=== PATIENT | female | born 1965 | race Caucasian/White ===

== ENCOUNTER 2016-12-06 05:52 | Day surgery (SDC) | payer OTHER ==
[2016-12-05] MEDS: CeFAZolin Inj 2 GM in IV Premix 1 EACH IV SCH (06:00)
[2016-12-06] VITALS (14 sets, daily range): BP systolic 95–121; BP diastolic 37–77; PULSE 61–81; RESP 11–18; O2SAT 96–100
[~2016-12-06] VITALS: Ht 172.7 cm; Wt 82.8 kg
[2016-12-06] MEDS: Lactated Ringer's 1,000 ML IV SCH ×6 (05:00→17:03)
[~2016-12-06 05:52] MED LIST: Dextrose 10% 250 ML IV SCH; ESTR42.52 VG; Phenazopyridine 97.5 mg Tablet PO SCH
[2016-12-06] MEDS ORDERED: Ondansetron 2 mg/mL 2 mL Inj ONE (05:53)
[2016-12-06] MEDS ORDERED: Propofol 10,000 mCg/mL 20 mL Inj ONE (05:53)
[2016-12-06] MEDS ORDERED: fentaNYL-PF 50 mCg/mL 2 mL Inj ONE (05:53)
[2016-12-06] MEDS ORDERED: Rocuronium 10 mg/mL 5 mL Inj ONE (05:53)
[2016-12-06] MEDS ORDERED: Dexamethasone 4 mg/mL Inj ONE (05:53)
[2016-12-06] MEDS ORDERED: HYDROmorphone 1 mg/mL Inj ONE (05:53)
[2016-12-06] MEDS ORDERED: CeFAZolin 2 Gm/50 mL D5W Duplex Bag IV ONE (06:19)
[2016-12-06] MEDS ORDERED: Phenazopyridine 97.5 mg Tablet ONE (06:20)
--- NOTE | 2016-12-06 07:22 | PCM.HPANE ---
Patient Data Date of Service: Dec 06, 2016 Surgeon Admitting Provider: Attending Provider:Jamey Terry MD Primary Care Physician:Ilsa Other Provider:Hue Mike Anesthesia Reason for Visit Cystocele,Rectocele,Uterovaginal Prolapse Ht/WT & BMI Height (Feet): 5 Height (Inches): 8.00 Weight (Kilograms): 75.3 Body Mass Index 25.00 Allergies Coded Allergies: Sulfa (Sulfonamide Antibiotics) (Verified Allergy, Mild, sun reaction, 05/06) Past Anesthesia History Anesthesia History: Denies:: Abnormal Airway, Anesthesia Reactions, Difficult Intubation, Fam Anesthesia Reaction, Fam Malignant Hypertherm, Malignant Hyperthermia Diabetes History Hx Diabetes?: No MRSA MRSA: No Medications Hypertension Medication: No Home Meds Incl Beta Eliot: No Reported Medications Estradiol (Estrace)42.5 Gm Cream.appl1 G VG Q3D #1 TUBE Ref 0 11/29/16 History History of ENT Problems?: Yes HEENT History: Denies:: Abnormal Airway Cataracts Difficult Intubation Dysphagia Glaucoma Hearing Problem Sinus Problem TMJ (wears nightguard) Denture Type: None Teeth Condition: Within Normal Limits Hx of Heart Problems?: No Cardiovascular History: Denies:: AICD Abdominal Aortic Aneurism Atrial Fibrillation Cardiac Surgery Chest Pain Edema Heart Murmur Hypertension Irregular Heartbeat Pacemaker Peripheral Vascular Rheumatic Fever Hx of Respiratory Problem?: No Respiratory History: Denies:: Asthma COPD Emphysema Oxygen Administration Pneumonia Tuberculosis Use of C-PAP Machine Use of Inhalers / NEBS Hx Neurologic Problems?: No Neurological History: Denies:: Alzheimer's Disease Dementia Dizziness Headaches Multiple Sclerosis Parkinson's Disease Seizures TIA Hx of GI Problems?: No Hx of Problems?: Yes Genitourinary History: Denies:: Kidney Stones Female Hx: Denies:: Currently Problems with Breasts? Skin History: Denies:: History Skin Disorders? Pressure Ulcers Hx Musculoskeletal Problems?: Yes Musculoskeletal History: Positive for:: Back Injury (L4-5 disc rupture - exercises with PT) Osteoarthritis (neck) Denies:: Fibromyalgia Joint Replacement Musculoskeletal Trauma Myasthenia Gravis Rheumatoid Arthritis Systemic Lupus Hx of Psycho/Social Problems?: No Psycho Social History: Denies:: Anxiety Hx Depression (past hx of, managed now with counseling ) Hx Surgeries?: Yes (ORIF leg-right tibia, ) Hx Any Other Health Problems?: Yes Other History: Positive for:: Hospitalization (ortho trauma) Denies:: Cancer Thyroid Disease History Blood Transfusions: Positive for:: Accept Blood Products? Denies:: Blood Transfusions Hx Diabetes: No Hx Alcohol Use: YesAlcoholic Drinks Per Day: 1-3 drinks weekHx Substance Use: No (remote hx of marijuana- occ topical cbd)Have You Smoked inLast 12 mo: No (years ago) Stop/Bang S-Snoring: Do You Snore Loudly: No T-Tired: feel tired, fatigued: No O-Obsered: Observed not breath: No P-Blood Pressure: treated: No B- Body Mass Index > 35 kg/m2: No A- Age over 50: Yes N- Neck Large Circumference: No G- Gender Male: No SARAH Total Score: 1 SARAH Risk Assessment: Low Risk, <3 Yes Risk Assessment Category Category 1A: Patient has history of documented sleep apnea, and HAS NOT received any narcotic, sedative or anesthesia administration during this stay. Category 1B: Patient has history of documented sleep apnea, and HAS received any narcotic , sedative or anesthesia administration during this stay Category 2: Patient has SUSPECTED Obstructive Sleep Apnea, and HAS received any narcotic , sedative or anesthesia administration during this stay. Category 3: Patient has SUSPECTED Obstructive Sleep Apnea and HAS NOT received narcotic, sedative or anesthesia administration during this stay. Category 4: Outpatient in Procedural Areas with known sleep apnea or who screen positive for High Risk via the STOP/BANG questionnaire. Exam Exam Vital Signs Vital Signs Date Time Temp Pulse Resp B/P Pulse Ox O2 Delivery O2 Flow Rate FiO2 12/06/16 06:34 36.5 61 16 117/63 100 Room Air General Appearance: Alert, Oriented X3, Cooperative, No Acute Distress HEENT/AIRWAY: MP 2 Lungs: Clear to Auscultation, Normal Air Movement Heart: Exam Unremarkable, Regular Rate/Rhythm, No Murmurs/Rubs/Gallops Meds/Labs/Diagnostics Admission Meds Current Medications Lactated Ringer's (Lr) 1,000 ml @ 120 mls/hr Q8H20M IV Last administered on 06:34; Start 12/06/16 at 05:00; Stop 12/06/16 at 13:19 Phenazopyridine HCl (Azo Standard) 2 tab STK-MED ONCE .ROUTE Last administered on 7/19/17at 07:01; Start 12/06/16 at 06:20; Stop 12/06/16 at 06:21; Status DC Plan Impression Patient chart reviewed, patient interviewed and anesthestic plan with risks, benefits, and alternatives discussed, and informed consent obtained. NPO per Anesth. Guidelines: Yes ASA Physical Status: ASA2 Mod Systemic Disease Anesthetic Plan: GA Bene/Risks/Altern/Consents: Yes HP Complete Prior to Induction: Yes Other Pt declined SAB Caleb Dinero MD Dec 06, 2016 07:22
[2016-12-06] MEDS: CeFAZolin Inj 2 GM in IV Premix 1 EACH IV SCH (08:06)
[2016-12-06] MEDS ORDERED: Lactated Ringer's 1,000 ML IV SCH (08:18)
[2016-12-06] MEDS ORDERED: Lactated Ringer's 500 ML IV PRN (08:18)
[2016-12-06] MEDS ORDERED: Ondansetron 2 mg/mL 2 mL Inj IVPUSH PRN ×2 (08:20→11:55)
[2016-12-06] MEDS ORDERED: Atropine 0.4 mg/mL Inj IVPUSH PRN (08:20)
[2016-12-06] MEDS ORDERED: MetoCLOpramide 5 mg/mL 2 mL Inj IVPUSH PRN ×2 (08:20→11:55)
[2016-12-06] MEDS ORDERED: hydrALAZINE 20 mg/mL Inj IVPUSH PRN (08:20)
[2016-12-06] MEDS ORDERED: Phenylephrine 10,000 mCg/mL Inj IVPUSH PRN (08:20)
[2016-12-06] MEDS ORDERED: HYDROmorphone 1 mg/mL Inj IVPUSH PRN (08:20)
[2016-12-06] MEDS ORDERED: EPHEDrine Sulfate 50 mg/mL Inj IVPUSH PRN (08:20)
[2016-12-06] MEDS ORDERED: Labetalol 5 mg/mL 4 mL Inj IV PRN (08:20)
[2016-12-06] MEDS ORDERED: Lidocaine 1%-Epi 1:100,000 20 mL Inj INJ ONE (08:37)
[2016-12-06] MEDS ORDERED: Sodium Chloride Bacteriostatic 30 mL Inj INJ ONE ×2 (08:37→09:07)
[2016-12-06] MEDS ORDERED: Gentamicin 40 mg/mL 2 mL Inj IRRIGATION ONE ×2 (08:38→09:59)
[2016-12-06] MEDS ORDERED: Lidocaine 1%-Epi 1:100,000 20 mL Inj INFILTRATE ONE (09:07)
[2016-12-06] MEDS ORDERED: Estrogens Conjugated 30 Gm Vaginal Cream VAGINAL ONE (10:39)
--- NOTE | 2016-12-06 11:51 | PCM.ANEP1 ---
Post Anesthesia PACU Phase 1 Assessment Date of Service: Dec 06, 2016 Vital Signs 37.3 105/37 65 7 97% FM Anesthetic Administered: GA Level of Alertness: Sleeping, hard to arouse ACEVES's with Equal Strength: Yes Pain: No Nausea or Vomiting: No CV Function & Hydration Stable: Yes Airway Device: Oxygen Delivery: Simple Mask Lungs: Clear to Auscultation, Normal Air Movement PACU Phase 2 Assessment Complications: No Follow up Care: No Patient Instructions Provided: Yes Caleb Vega MD Dec 06, 2016 11:51
[2016-12-06] MEDS ORDERED: diphenhydrAMINE 25 mg Capsule PO PRN (11:55)
[2016-12-06] MEDS ORDERED: Alum-Mag Hydrox-Simeth 30 mL Suspension PO PRN (11:55)
[2016-12-06] MEDS: fentaNYL-PF 50 mCg/mL 2 mL Inj IVPUSH PRN ×3 (12:57→13:24)
--- NOTE | 2016-12-06 14:15 | NUR ---
PostOp Pt comes from PACU A&OX4 but sleepy. c/o pain 6/10 mostly low ABD. Back pain 5/10 baseline for her. Del Castillo orange output and in place. IV in use. Family a bedside. Care continues
[2016-12-06] MEDS: Acetaminophen IV 1,000 MG in IV Premix 1 EACH IV PRN ×2 (17:04→23:01)
--- NOTE | 2016-12-06 17:06 | PCM.SURGOP ---
Surgical Operative Report Date of Service: Dec 06, 2016 Pre Operative Diagnosis 1. Uterovaginal prolapse, incomplete N81.2 (618.2): 2. Cystocele, midline N81.11 (618.01): 3. Rectocele N81.6 (618.04): 4.Pelvic pain in female R10.2 (625.9): Post Operative Diagnosis POPQ Stage 2 cystocele, rectocele, enterocele and uterine prolapse. Deficient pubovesica fascia Pelvic/bladder pain Procedure: vaginal hysterectomy with left salpingectomy, anterior repair with Xenform biologic graft augmentation, posterior repair high uterosacral ligament vaginal vault suspension, enterocele repair. hydrodistention cystoscopy Surgeon and Electrician Second: Surgeon: Jamey Terry MD Assistants: Martine Villela Indication for Procedure Her assessment to date includes: 1. Uterovaginal prolapse, incomplete N81.2 (618.2): 2. Cystocele, midline N81.11 (618.01): 3. Rectocele N81.6 (618.04): 4. Urge incontinence N39.41 (788.31): 5. Pelvic pain in female R10.2 (625.9) She is a candidate for a vaginal hysterectomy with bilateral salpingectomy, anterior repair and posterior repair with possible biologic graft augmentation, high uterosacral ligament vaginal vault suspension , enterocele repair. She has agreed to hydrodistention to assess for possible interstitial cystitis. A TVT-O sling is not required as we did not demonstrate stress incontinence on 3 different occasions, including with urodynamics. The patient signed the consent form. She agreed with the risks, benefits, and alternatives to surgery. The risks included but not limited to recurrence or persistence of prolapse, recurrence of persistence of incontinence, development of voiding dysfunction, development of urinary urgency, urgency incontinence, frequency, and need for intermittent self-catheterization or prolonged indwelling catheterization, injury to other organs including bladder, bowel, nerves or blood vessels. Need for blood transfusion, need for temporary colostomy or urinary stenting. Development of vaginal scarring, dyspareunia, defecatory dysfunction, recurring pain, hematoma formation, urinary tract infection, cellulitis, necrotizing fascitis, and medical risks including myocardial infarction, stroke or VTE. She also understood the FDA warnings associated with the use of vaginal mesh (dysparunia, vaginal erosion, erosion into bowel/bladder/urethra, requiring further surgery to correct these complications) Findings: see dictation Procedure Details SURGICAL TECHNIQUE: The patient was brought to the operating room and was placed under general anesthesia. She was prepped and draped in the normal fashion for vaginal surgery with the legs in Yellofin stirrups. She was given a dose of IV ancef 2g intraoperatively. She also received 200 mg of oral pyridium in the preoperative area. 1. Vaginal Hysterectomy and left salpingectomy: Lidocaine 0.5% with 1:200,000 of epinephrine was infiltrated pericervically. A pericervical incision was made with a scalpel. Anteriorly, the bladder was sharply dissected off the cervix. Posteriorly, the cul de sac was entered with sharp dissection. The bowels were packed with a mini-laparotomy sponge. The uterosacral ligaments were bilaterally clamped, divided and then tied in a transfixion fashion with 0- vicryl suture. Anteriorly, the Uterovesical peritoneum was entered with sharp dissection and the bladder was retracted upward with a right-angle retractor. The uterus was normal in size. The uterine vessels were then clamped, then coagulated and cut using the Ligasure Impact system. The utero-ovarian ligaments were then clamped, cut, then tied twice using 0-vicryl suture. The uterus and cervix was sent to pathology. The ovaries appeared normal. She agreed to have a bilateral salpingectomy. The left tube were freed from its attachments using cautery, then clamped at their base and excised with Ligasure. The base was tied with 0-vicryl suture. The left tube was sent to pathology. The right tube was not clearly evident despite careful examination and palpation, superficial and deep in the pelvis. It was noted that the pedicles and cuff were hemostatic. 2. High uterosacral ligament vaginal vault suspension, cystoscopy and enterocele repair: Mini laparotomy sponges were packed to retract the bowel upwards. A pair of Allis clamps were placed along the intraperitoneal portions of the vagina at the 5 and 7 o'clock positions. Tension along these Allis clamps allowed for identification of the uterosacral ligaments bilaterally. A pair of 0 Vicryl sutures were passed around the uterosacral ligaments of the level of the ischial spine bilaterally, totalling 4. Cystoscopy was performed. While tension was placed along the uterosacral ligament sutures, spillage of pyridium-stained urine was noted at both ureteric orifices. Next, two 3-0 Prolene sutures were placed transversely through the cul-de-sac peritoneum. This was performed while using a gloved finger in the rectum as to avoid penetrating the underlying rectal mucosa. Tying these sutures obliterated the enterocele. 3. Anterior colporrhaphy with Xenform graft augmentation: Lidocaine 0.5% with 1 /106150 epinephrine was infiltrated along the anterior vaginal wall mucosa. A midline vertical incision was made through the anterior vaginal wall. The vaginal wall was dissected off the underlying pubocervical and pubovesical fascia. The dissection was extended laterally beyond the ischial pubic rami. It was noted that the pubocervical and pubovesical fascial tissues were deficient and thin. Bilateral paravaginal defects were identified. The cystocele was plicated in 2 layers, the first layer with 2-0 Vicryl suture in interrupted fashion, the second layer with 2-0 Tycron suture in an interrupted fashion. A trapezoidal piece of Xenform graft was then incorporated atop the plicated area far laterally. The graft was secured to the obturator internus membrane. At the level of the bladder neck, an upside down triangular piece of graft was excised so that there was no over-support created along the level of the bladder neck. Apically , the graft was passed through the proximal uterosacral ligament sutures. A mild amount of excess anterior vaginal mucosa was excised. The vault suspension sutures were then passed through the planned apex of the vagina. Two were placed through the anterior apex and the other two, through the posterior apex. The vagina was then reapproximated using 3-0 Vicryl suture in a running-locked fashion. The high uterosacral ligament vaginal vault suspension sutures were tied and this elevated the apex of the vagina high up into the hollow of the sacrum. 4. Posterior colpoperineorrhaphy: Lidocaine 0.5% with 1:200,000 of epinephrine was infiltrated along the perineum and posterior vaginal wall mucosa. Midline vertical incision was made through the perineum and posterior vagina with a scalpel. No perineal wedge was excised. The vaginal mucosa was dissected off the underlying rectovaginal tissues. It was noted the rectovaginal fascial tissues were not thin nor deficient. The rectocele was then plicated in the midline in 1 layer using 2-0 Vicryl suture in an interrupted fashion. No excess posterior vaginal mucosa was needed to be excised. The vagina was reapproximated using 3-0 vicryl suture in a running-locked fashion. The perineum was reapproximated using 2-0 Vicryl suture in an interrupted fashion. The skin was reapproximated using 3-0 Vicryl suture in a subcuticular fashion. The resulting repair allowed the insertion of 3 gloved fingers into the vagina. 5. Cystoscopy with hydrodistension. Cystoscopy revealed a normal appearing urethra and bladder. Both ureteric orifices were visualized and noted to be functional by the multiple brisk spillage of pyridium dye-stained urine. Next the bladder was filled with sterile water at a pressure of 100 cm H2O under gravity. Periurethral pressure was used to keep water from escaping the bladder. Once flow had halted , a 2 minute waiting period was made to elapse to distend the bladder for 2 minutes. The bladder was then emptied. The fliud volume measured was 1000 mL. Minimal terminal bloody effluent was noted. Another 2 minute period of hydrodistension was then repeated. The measured fluid was 1000 ml with mild terminal bloody effluent. Cystoscopy was repeated. There were mild petechiae and glomerulations noted in the bladder. A 16F Perez catheter was inserted and connected to straight drainage The vagina was packed with premarin cream-lubricated packing. An indwelling 16F perez catheter was connected to straight drainage. The patient's hips were periodically deflexed during the case. There were no complications. The EBL was 200 ml. All sponges and instruments were accounted for. She was taken to the recovery room in stable condition. Complications There were no periprocedural complications identified. Surgical Specimen Removed: Yes Specimen sent to Pathology: Yes Surgical Specimen description: uterus/cervix, left tube Anesthetic Plan: GA Grafts, Implants: Grafts-See Implant Record Output, Estimated Blood Loss: 200 (ml EBL) Blood Administration during kim: No Drains: None Catheters: Urethral 2 Way Perez Post Operative Plan overnight outpatient stay in bed as she requires a voiding trial in the am copies to: Jamey Terry MD; Martine Villela; Rikki Finnegan MD, William Andre Z MD Dec 06, 2016 17:06
--- NOTE | 2016-12-06 17:48 | NUR ---
Pain c/o baseline back pain that she has all the time. ABD pain 7/10 seems to improve with Dilaudid PO 2mg. IV APAP ordered and planned to be given got pain control as well. Pt requesting Ibuprofen. Care continues
[2016-12-07 00:11] VITALS: BP 97/55; PULSE 72; RESP 18; O2SAT 98
[2016-12-07] MEDS: Lactated Ringer's 1,000 ML IV SCH ×2 (01:45→11:51)
--- NOTE | 2016-12-07 02:18 | NUR ---
Pain Patient expressed [id number] pain, given IV Tylenol, morphine IV push, then followed up with PO Dilaudid. Voiced inability to get any sleep this shift.
[2016-12-07 04:13] VITALS: BP 93/60; PULSE 66; RESP 16; O2SAT 97
[2016-12-07 05:34] LABS: Mean Corpuscular Hemoglobin 29.2 pg (27.0-35.0); Mean Corpuscular Volume 88.3 fL (81-100); Platelet Count 154 bil/L (150-400)
[2016-12-07 05:35] LABS: BASOPHILS % (AUTO) 0.1 % (0-3); EOSINOPHILS % (AUTO) 0.1 % (0-5); MONOCYTES % (AUTO) 5.9 % (4-12); NEUTROPHILS % (AUTO) 81.5 % (40-74)
[2016-12-07] MEDS: Acetaminophen IV 1,000 MG in IV Premix 1 EACH IV PRN (05:56)
[2016-12-07] MEDS ORDERED: Heparin 5,000 Unit/mL Inj SUBQ SCH (08:30)
[2016-12-07] MEDS ORDERED: Senna-Docusate 8.6-50 mg Tablet PO SCH (08:30)
[2016-12-07 08:47] VITALS: BP 98/60; PULSE 66; RESP 16; O2SAT 96
--- NOTE | 2016-12-07 10:27 | PCM.DIGYN ---
Surgical Discharge Instruction Dates of Hospitalization Date of Hospital Admission 12/06/16 outpatient Providers Admitting Physician: Primary Care Physician: Nopcp Attending Physician: Jamey Terry MD Diagnosis at Time of Discharge Diagnosis at time of discharge POPQ Stage 2 cystocele, rectocele, enterocele and uterine prolapse. Deficient pubovesica fascia Pelvic/bladder pain Post-operative diagnosis POPQ Stage 2 cystocele, rectocele, enterocele and uterine prolapse. Deficient pubovesica fascia Pelvic/bladder pain Problems: Diet Discharge Diet: No restrictions Activity Discharge Activity-General: Restrict lifting to no greater than (10 lbs for 6 wk) Dressing and Incisional Care Hygiene: May shower Follow Up Plan Follow-up appointment: Weeks (2; also f/u with Dr. Terry's MA in 1 wk if home with a perez) Call your provider for: Fever, Chills, Shortness of breath, Vomitting, Heavy vaginal bleeding, Increasing pain Jamey Terry MD Dec 07, 2016 10:26
--- NOTE | 2016-12-07 10:31 | PCM.PNSURG ---
Subjective Date of Service: Dec 07, 2016 Date of Service: Dec 07, 2016 Visit Information: Reason for Visit Cystocele,Rectocele,Uterovaginal Prolapse Surgery/Surgery Date VAG HYSTERECTOMY 12/06/16 Post-Op Day # 1 Date of Admission: Hospital Day # Subjective: AVSS ambulated OR explained Pain control with po analgesics diet tolerated Hct 30 Postop General: No Complaints Gastrointestinal: Good Appetite Pain Management: PO Postop Activity: Ambulating Independently Objective Vital Sign- Last 8 Hours Date Time Temp Pulse Resp B/P Pulse Ox O2 Delivery O2 Flow Rate FiO2 12/07/16 08:47 36.7 66 16 98/60 96 Room Air 12/07/16 04:13 36.8 66 16 93/60 97 Room Air Intake and Output- Last 8 Hour 12/07/16 Cumulative From/Thru 07:00 11/29/16 10:12 - 12/07/16 06:09 Intake Total 2197 ml 4572 ml Output Total 3300 ml 4260 ml Balance -1103 ml 312 ml Intake Oral 913 ml 1613 ml IV Total 1284 ml 2959 ml Output Urine Total 3300 ml 3860 ml Estimated Blood Loss 400 ml # Bowel Movements 0 0 General: Alert, Oriented X3, Cooperative Lungs: Clear to Auscultation Abdomen: Benign Catheters: Urethral 2 Way Del Castillo Result Diagram: 12/07/16 0500 Assessment & Plan Impression mild iron deficiency anemia secondary to blood loss Chronic anemia stable POD#1 Problems: Plan continue with iron supplementation as before voiding trial this am discharge home later today copies to: Jamey Terry MD, William Andre Z MD Dec 07, 2016 10:31
--- NOTE | 2016-12-07 14:15 | NUR ---
DISCHARGE Dilaudid 2 mg PO and Toradol has been effective for pain control. Patient rated her pain as 4/10, which is tolerable for her. Tolerating liquids PO and her diet well. Denies nausea. No emesis noted. Denies SOB. Patient has been able to ambulate in her room with SBA. Tolerated activity fairly. Vaginal packing d/cd. IFC d/cd at 10:30 per orders. Voiding trial done. Patient was able to empty 100 ml. PVR-500+. Patient attempted to void again but only had 100 ml out. IFC inserted per orders. IFC instructions given to the patient and she was able to do a return demonstration RE: IFC emptying and care. IV saline lock d/cd. Discharge instructions, care notes and prescription was given to the patient and she verbalized understanding. Per patient her significant other, who is a former [employer] can assist her with her IFC care. Discharged to home with her significant other and all her personal belongings. (Copy of D/C is in the chart).
--- NOTE | 2016-12-11 14:30 | PATH ---
SURGICAL PATHOLOGY Attending Physician:Jamey Terry, CASE STATUS: Signed Out PATIENT NAME: ROLAND SHAVER PID: [id number] : 1965 DATE COLLECTED:12/06/2016 22:08 SPECIMEN: Uterus +/- tubes/ovaries, except neoplastic, prolapse CLINICAL HISTORY: CYSTOCELE, RECTOCELE, UTEROVAGINAL PROLAPSE, UTERINE PROLAPSE 1). UTERUS & LEFT FALLOPIAN TUBE FINAL DIAGNOSIS: 1.UTERUS AND LEFT FALLOPIAN TUBE, HYSTERECTOMY AND LEFT SALPINGO-OOPHORECTOMY: WEAKLY PROLIFERATIVE ENDOMETRIUM NEGATIVE FOR NEOPLASM. MULTIPLE LEIOMYOMATA. CERVIX NEGATIVE FOR NEOPLASIA. LEFT FALLOPIAN TUBE NEGATIVE FOR NEOPLASIA. ICD10 N81.4 GROSS DESCRIPTION: The specimen is received in formalin, labeled with the patient's name, sublabeled as uterus & left fallopian tube, and consists of a uterus (76 g, 3.7 cm AP, 9.2 cm SI, 4.6 cm ML) and a detached fimbriated fallopian tube (length-3.7 cm, diameter-0.5 cm). The ovaries and second fallopian tube are absent. The cervix (2.3 cm AP, 3.2 cm ML) has a vaginal cuff (up to 0.8 cm), transverse os and patent endocervical canal. The endometrium (average thickness-0.2 cm) is simmons-pink smooth and flat. The myometrium (thickness-1.9 cm) contains multiple solid firm white-whorled well circumscribed homogenous nodules (0.2 x 0.1 x 0.1 cm-1.2 x 0.7 x 0.7 cm). The fallopian tube has altman-purple smooth shiny serosa and a simmons unremarkable lumen. Section code: (A) anterior cervix; (B) posterior cervix; (C, D) anterior endomyometrium; (E, F) posterior endomyometrium; (G) fallopian tube, serial section, business services sales representative; (H) fimbria, bivalved, entirely submitted. 12/07/16 JM MICRO DESCRIPTION: See diagnosis. ICD-9 CODES: CPT CODES: 1: 27169 Electronically Signed Out Logan Yeager MD, Ph.D. [facility] [address] [place] [id number] Technical component performed at [facility], [address], [address]
== END 2016-12-07 14:13 | disposition home or self-care (01) ==
LOC: SAS 05:52 → OSC 14:05 → SAS 12-07 14:13
PROVIDERS: ATTEND Obstetrics & Gynecology
DX: N81.11 Cystocele, midline (principal); N81.6 Rectocele; N81.2 Incomplete uterovaginal prolapse; Z88.2 Allergy status to sulfonamides; Z87.891 Personal history of nicotine dependence
CPT/HCPCS: 36415; 57260; 58263; 85025; 86850; C1763; J0131; J0690; J1100; J1170; J1580; J1644; J1885; J2250; J2270; J2405; J3010; J7120